=== PATIENT | female | born 1985 | race African-American/Black ===

== ENCOUNTER 2019-10-26 12:29 | Emergency (ER) | payer SELFPAY ==
[~2019-10-26] VITALS: Ht 165.1 cm; Wt 68.1 kg
[2019-10-26] MEDS: METOCLOPRAMIDE HCL 10 MG/2 ML VIAL. IVP ONE (13:45)
[2019-10-26 14:02] LABS: BASO # 0.1 x10^3/uL (0.0-0.2); BASO % 1 % (0-3); EOS # 0.2 x10^3/uL (0.0-0.7); EOS % 2 % (0-3); HEMATOCRIT 36.8 % (36.0-47.0); HEMOGLOBIN 12.8 g/dL (12.0-15.5); LYMPH # 1.9 x10^3/uL (1.0-4.8); LYMPH % 20 % (24-48); MEAN CORPUSCULAR HEMOGLOBIN 33 pg (25-35); MEAN CORPUSCULAR HGB CONC 35 g/dL (31-37); MEAN CORPUSCULAR VOLUME 94 fL (79-100); MONO # 0.5 x10^3/uL (0.0-1.1); MONO % 6 % (0-9); NEUT # 6.8 x10^3/uL (1.8-7.7); NEUT % 72 % (31-73); PLATELET COUNT 403 x10^3/uL (140-400); RED BLOOD COUNT 3.91 x10^6/uL (3.50-5.40); RED CELL DISTRIBUTION WIDTH 14.5 % (11.5-14.5); WHITE BLOOD COUNT 9.5 x10^3/uL (4.0-11.0)
[2019-10-26] MEDS: IV NORMAL SALINE 1000ML BAG 1,000 ML IV SCH (14:09)
[2019-10-26 14:13] LABS: CALCIUM 9.4 mg/dL (8.5-10.1); CREATININE 0.7 mg/dL (0.6-1.0); GFR 95.2; POTASSIUM 3.7 mmol/L (3.5-5.1)
[2019-10-26] MEDS: diphenhydrAMINE 50 MG/ML VIAL IVP ONE (14:18)
[2019-10-26 14:19] LABS: ALBUMIN 3.9 g/dL (3.4-5.0); TOTAL BILIRUBIN 0.4 mg/dL (0.2-1.0)
[2019-10-26 14:20] LABS: BILIRUBIN,URINE NEGATIVE (NEG); CLARITY,URINE CLEAR; COLOR,URINE YELLOW; NITRITE,URINE NEGATIVE (NEG); PH,URINE 5.5 (<5.0-8.0); PROTEIN,URINE 30 mg/dL (NEG-TRACE)
[2019-10-26 14:26] LABS: BARBITURATES NEG (NEG); BENZODIAZEPINES NEG (NEG); CANNABINOIDS POS (NEG); COCAINE NEG (NEG); METHADONE NEG (NEG); OPIATES NEG (NEG); PHENCYCLIDINE NEG (NEG)
[2019-10-26 14:33] LABS: SQUAMOUS EPITHELIAL CELL,UR FEW /LPF
[2019-10-26 14:34] LABS: BACTERIA,URINE 0 /HPF (0-FEW); WBC,URINE 0 /HPF (0-4)
[2019-10-26 14:36] LABS: AMPHETAMINE/METHAMPHETAMINE NEG (NEG)
[2019-10-26] MEDS: PROCHLORPERAZINE 10 MG/2 ML VIAL. IV ONE (15:42)
[2019-10-26] MEDS: fentaNYL PF VIAL 100 MCG/2 ML VIAL IVP ONE (15:43)
[2019-10-26 15:50] VITALS: BP 146/94
[2019-10-26] MEDS ORDERED: PROM25TA10 PO (16:17)
--- NOTE | 2019-10-26 16:18 | PHYS DOC ---
Past Medical History Past Medical History: Anxiety Past Surgical History: Smoking Status: Current Every Day Smoker Additional Information: 3 CIGARETTES A DAY Alcohol Use: Occasionally Adult General Chief Complaint Chief Complaint: ABDOMINAL PAIN HPI HPI Patient is a 34 year old female with history of anxiety who presents with complaint of nausea and vomiting and diarrhea. Patient complaining of 2 episodes of diarrhea after she woke up this morning and then dry heaving without having vomiting and then epigastric pain since this morning as a constant pain with radiation to her back and rated her pain 10/10. Patient stated she was not able to take her anxiety medication. Patient denies history of the same problem, sick contact, urinary symptoms, fever or chills, chest pain or shortness of breath. Review of Systems Review of Systems Constitutional: Denies fever or chills [] Eyes: Denies change in visual acuity, redness, or eye pain [] HENT: Denies nasal congestion or sore throat [] Respiratory: Denies cough or shortness of breath [] Cardiovascular: No additional information not addressed in HPI [] GI: Reports abdominal pain, nausea, diarrhea [] : Denies dysuria or hematuria [] Musculoskeletal: Denies back pain or joint pain [] Integument: Denies rash or skin lesions [] Neurologic: Denies headache, focal weakness or sensory changes [] Endocrine: Denies polyuria or polydipsia [] All other systems were reviewed and found to be within normal limits, except as documented in this note. Current Medications Current Medications Current Medications Medications (Trade) Dose Ordered Sig/Giancarlo Start Time Stop Time Status Last Admin Dose Admin Diphenhydramine HCl (Benadryl) 50 mg 1X ONCE 10/26/19 14:15 10/26/19 14:16 DC 10/26/19 14:18 50 MG Fentanyl Citrate (Fentanyl 2ml Vial) 50 mcg 1X ONCE 10/26/19 15:45 10/26/19 15:46 DC 10/26/19 15:43 50 MCG Lorazepam (Ativan Inj) 1 mg 1X ONCE 10/26/19 14:45 10/26/19 14:46 DC 10/26/19 14:47 1 MG Metoclopramide HCl (Reglan Vial) 10 mg 1X ONCE 10/26/19 13:45 10/26/19 13:46 DC Prochlorperazine Edisylate (Compazine) 10 mg 1X ONCE 10/26/19 15:30 10/26/19 15:31 DC 10/26/19 15:42 10 MG Sodium Chloride 1,000 ml @ 1,000 mls/hr 1X ONCE 10/26/19 16:45 10/26/19 17:44 Allergies Allergies Allergies Coded Allergies Type Severity Reaction Last Updated Verified famotidine Allergy Mild "TONGUE TWISTS" 10/26/19 Yes ketorolac Allergy Mild "TONGUE TWISTS" 10/26/19 Yes metoclopramide Allergy Mild "TONGUE TWISTS" 10/26/19 Yes ondansetron Allergy Mild "TONGUE TWISTS" 10/26/19 Yes Physical Exam Physical Exam Constitutional: Well nourished, moderate distress, non-toxic appearance very anxious, dry heaving during evaluation with making loud nose. [] HENT: Normocephalic, atraumatic, oropharynx moist, no oral exudates, nose normal. [] Eyes: PERRLA, EOMI, conjunctiva normal, no discharge. [] Neck: Normal range of motion, no tenderness, supple, no stridor. [] Cardiovascular:Heart rate regular rhythm, no murmur [] Lungs & Thorax: Bilateral breath sounds clear to auscultation [] Abdomen: Bowel sounds normal, soft, no tenderness, no masses, no pulsatile masses. [] Skin: Warm, dry, no erythema, no rash. [] Back: No tenderness, no CVA tenderness. [] Extremities: No tenderness, no cyanosis, no clubbing, ROM intact, no edema. [] Neurologic: Alert and oriented X 3, normal motor function, normal sensory fun ction, no focal deficits noted. [] Psychologic: Affect anxious, judgement normal, mood normal. [] Current Patient Data Vital Signs Vital Signs Date Time Temp Pulse Resp B/P (MAP) Pulse Ox O2 Delivery O2 Flow Rate FiO2 10/26/19 16:13 19 96 Room Air 10/26/19 15:50 89 146/94 (111) 10/26/19 13:20 98.1 98.1 Lab Values Laboratory Tests Test 10/26/19 13:45 10/26/19 14:07 10/26/19 14:13 White Blood Count 9.5 x10^3/uL (4.0-11.0) Red Blood Count 3.91 x10^6/uL (3.50-5.40) Hemoglobin 12.8 g/dL (12.0-15.5) Hematocrit 36.8 % (36.0-47.0) Mean Corpuscular Volume 94 fL (79-100) Mean Corpuscular Hemoglobin 33 pg (25-35) Mean Corpuscular Hemoglobin Concent 35 g/dL (31-37) Red Cell Distribution Width 14.5 % (11.5-14.5) Platelet Count 403 x10^3/uL (140-400) H Neutrophils (%) (Auto) 72 % (31-73) Lymphocytes (%) (Auto) 20 % (24-48) L Monocytes (%) (Auto) 6 % (0-9) Eosinophils (%) (Auto) 2 % (0-3) Basophils (%) (Auto) 1 % (0-3) Neutrophils # (Auto) 6.8 x10^3/uL (1.8-7.7) Lymphocytes # (Auto) 1.9 x10^3/uL (1.0-4.8) Monocytes # (Auto) 0.5 x10^3/uL (0.0-1.1) Eosinophils # (Auto) 0.2 x10^3/uL (0.0-0.7) Basophils # (Auto) 0.1 x10^3/uL (0.0-0.2) Sodium Level 141 mmol/L (136-145) Potassium Level 3.7 mmol/L (3.5-5.1) Chloride Level 105 mmol/L (98-107) Carbon Dioxide Level 21 mmol/L (21-32) Anion Gap 15 (6-14) H Blood Urea Nitrogen 11 mg/dL (7-20) Creatinine 0.7 mg/dL (0.6-1.0) Estimated GFR (Cockcroft-Gault) 95.2 BUN/Creatinine Ratio 16 (6-20) Glucose Level 113 mg/dL (70-99) H Calcium Level 9.4 mg/dL (8.5-10.1) Total Bilirubin 0.4 mg/dL (0.2-1.0) Aspartate Amino Transferase (AST) 21 U/L (15-37) Alanine Aminotransferase (ALT) 13 U/L (14-59) L Alkaline Phosphatase 67 U/L (46-116) Total Protein 8.0 g/dL (6.4-8.2) Albumin 3.9 g/dL (3.4-5.0) Albumin/Globulin Ratio 1.0 (1.0-1.7) Lipase 49 U/L (73-393) L Urine Collection Type U cath Urine Color Yellow Urine Clarity Clear Urine pH 5.5 (<5.0-8.0) Urine Specific [place] >=1.030 (1.000-1.030) Urine Protein 30 mg/dL (NEG-TRACE) Urine Glucose (UA) Negative mg/dL (NEG) Urine Ketones (Stick) 15 mg/dL (NEG) Urine Blood Negative (NEG) Urine Nitrite Negative (NEG) Urine Bilirubin Negative (NEG) Urine Urobilinogen Dipstick 1.0 mg/dL (0.2 mg/dL) Urine Leukocyte Esterase Negative (NEG) Urine RBC 1-2 /HPF (0-2) Urine WBC 0 /HPF (0-4) Urine Squamous Epithelial Cells Few /LPF Urine Bacteria 0 /HPF (0-FEW) Urine Mucus Marked /LPF Urine Opiates Screen Neg (NEG) Urine Methadone Screen Neg (NEG) Urine Barbiturates Neg (NEG) Urine Phencyclidine Screen Neg (NEG) Urine Amphetamine/Methamphetamine Neg (NEG) Urine Benzodiazepines Screen Neg (NEG) Urine Cocaine Screen Neg (NEG) Urine Cannabinoids Screen Pos (NEG) Urine Ethyl Alcohol Neg (NEG) POC Urine HCG, Qualitative Hcg negative (Negative) Laboratory Tests 10/26/19 13:45 Laboratory Tests 10/26/19 13:45 EKG EKG [] Radiology/Procedures Radiology/Procedures [][facility] [id number] [place] [address] IMAGING REPORT Signed PATIENT: THEODORE LEE ACCOUNT: [id number] : 1985 LOCATION: ER AGE: 34 SEX: F EXAM STATUS: REG ER ORD. PHYSICIAN: ROHIT MEDEIROS MD REASON: Nausea vomiting abdominal pain PROCEDURE: CT ABDOMEN PELVIS WO CONTRAST EXAM: CT Abdomen and Pelvis without IV contrast INDICATION: Nausea, vomiting and abdominal pain. TECHNIQUE: Multi-detector row CT images were acquired from the lung bases through the abdomen and pelvis without the use of IV contrast. Sagittal and coronal images were acquired from the transaxial data. All CT scans performed at this facility utilize dose optimization techniques as appropriate to the exam, including the following: Automated exposure control and adjustment of the mA and/or KV according to patient size (this includes techniques or standardized protocols for targeted exams where dose is indication/reason for exam). ORAL CONTRAST: None COMPARISON: Abdomen and pelvis CT with IV contrast 07/28/2019 FINDINGS: The absence of IV contrast limits evaluation of soft tissue pathology. LOWER CHEST: Bilateral groundglass opacities are present in patchy distribution affecting the left lower lobe to the greatest extent. There is some respiratory motion artifact that degrades detail. These findings are new from the previous exam. LIVER: Unremarkable BILIARY SYSTEM: Gallbladder is surgically absent. Bile ducts are not dilated. PANCREAS: Unremarkable SPLEEN: Unremarkable ADRENALS: Unremarkable KIDNEYS & URETERS: Stable 2 cm superior pole right renal cyst, better demonstrated on the prior examination. BLADDER: Unremarkable REPRODUCTIVE ORGANS: Unremarkable GASTROINTESTINAL: The stomach, small bowel, and colon are unremarkable. The appendix is normal. MESENTERY/PERITONEUM/RETROPERITONEUM: Unremarkable VASCULAR: Unremarkable LYMPH NODES: No adenopathy OSSEOUS & SOFT TISSUES: Fat necrosis in the right gluteal subcutaneous soft tissues. IMPRESSION: Nonspecific bibasilar patchy groundglass opacities, potentially reflecting aspiration pneumonitis but other etiologies such as atypical (viral) pneumonia are not excluded. Otherwise no acute findings on abdomen and pelvis CT without IV contrast.. FOR INTERNAL CODING PURPOSES Critical result: Findings discussed with ROHIT MEDEIROS at 10/26/2019 5:12 PM. RESULT CODE: (C) Electronically signed by: Chris Blount MD (10/26/2019 5:14 PM) [id number] DICTATED and SIGNED BY: CHRIS BLOUNT MD DATE: 10/26/19 1714 Course & Med Decision Making Course & Med Decision Making Pertinent Labs and Imaging studies reviewed. (See chart for details) Evaluation of patient in ER showed 34-year-old male patient who presented for the first time to this emergency room and stated she was visiting this area from [place] complaining of nausea vomiting diarrhea and abdominal pain. Patient was very anxious and had a dry heaving during evaluation. Patient treated with several medications but patient was specifically asking for special medication and had drug-seeking behavior. Patient had unremarkable CBC CMP and UA except for positive marijuana in UDS. Patient refused discharge and asked for more pain medication. CT abdomen pelvis was done with unremarkable report of CT abdomen pelvis but radiologist reported possible viral pneumonitis and chest x- ray. I was planning to call [facility] for determining of evaluation of coronavirus but patient had her ride in here and decided to leave. Dragon Disclaimer Dragon Disclaimer This electronic medical record was generated, in whole or in part, using a voice recognition dictation system. Departure Departure Impression: Primary Impression: Acute gastroenteritis Additional Impressions: Marijuana abuse Anxiety Disposition: HOME, SELF-CARE (At 1615) Condition: IMPROVED Referrals: NO PCP (PCP) Patient Instructions: Anxiety and Panic Attacks, Viral Gastroenteritis Additional Instructions: Drink plenty of liquids Follow-up with your primary care physician in 3-5 days Return to ER if not getting better Do not eat solid food today May take [id number] Imodium as needed for diarrhea Continue your current home medication Thank you for visiting [facility]. We appreciate you trusting us with your care. If any additional problems come up don't hesitate to return to visit us. Please follow up with your primary care provider so they can plan additional care if needed and know about the problem that you had. If symptoms worsen come back to the Emergency Department. Any concerning symptoms that start such as chest pain, shortness of air, weakness or numbness on one side of the body, running high fevers or any other concerning symptoms return to the ER. Scripts Promethazine Hcl (PROMETHAZINE HCL) 25 Mg Tablet 1 TAB PO PRN Q6HRS, #10 TAB Prov: ROHIT MEDEIROS MD 10/26/19 Critical Care Time Critical care time was 60 minutes exclusive of procedures. Problem Qualifiers ROHIT MEDEIROS MD Oct 26, 2019 16:17
[2019-10-26] MEDS: IV NORMAL SALINE 1000ML BAG 1,000 ML IV ONE (16:45)
--- NOTE | 2019-10-26 17:17 | RAD ---
EXAM: CT Abdomen and Pelvis without IV contrast INDICATION: Nausea, vomiting and abdominal pain. TECHNIQUE: Multi-detector row CT images were acquired from the lung bases through the abdomen and pelvis without the use of IV contrast. Sagittal and coronal images were acquired from the transaxial data. All CT scans performed at this facility utilize dose optimization techniques as appropriate to the exam, including the following: Automated exposure control and adjustment of the mA and/or KV according to patient size (this includes techniques or standardized protocols for targeted exams where dose is indication/reason for exam). ORAL CONTRAST: None COMPARISON: Abdomen and pelvis CT with IV contrast 07/28/2019 FINDINGS: The absence of IV contrast limits evaluation of soft tissue pathology. LOWER CHEST: Bilateral groundglass opacities are present in patchy distribution affecting the left lower lobe to the greatest extent. There is some respiratory motion artifact that degrades detail. These findings are new from the previous exam. LIVER: Unremarkable BILIARY SYSTEM: Gallbladder is surgically absent. Bile ducts are not dilated. PANCREAS: Unremarkable SPLEEN: Unremarkable ADRENALS: Unremarkable KIDNEYS & URETERS: Stable 2 cm superior pole right renal cyst, better demonstrated on the prior examination. BLADDER: Unremarkable REPRODUCTIVE ORGANS: Unremarkable GASTROINTESTINAL: The stomach, small bowel, and colon are unremarkable. The appendix is normal. MESENTERY/PERITONEUM/RETROPERITONEUM: Unremarkable VASCULAR: Unremarkable LYMPH NODES: No adenopathy OSSEOUS & SOFT TISSUES: Fat necrosis in the right gluteal subcutaneous soft tissues. IMPRESSION: Nonspecific bibasilar patchy groundglass opacities, potentially reflecting aspiration pneumonitis but other etiologies such as atypical (viral) pneumonia are not excluded. Otherwise no acute findings on abdomen and pelvis CT without IV contrast.. FOR INTERNAL CODING PURPOSES Critical result: Findings discussed with ROHIT MEDEIROS at 10/26/2019 5:12 PM. RESULT CODE: (C) Electronically signed by: Hanane Keating MD (10/26/2019 5:14 PM) [id number]
== END 2019-10-26 17:34 | disposition home or self-care (01) ==
LOC: ER 12:29
DX: K52.9 Noninfective gastroenteritis and colitis, unspecified (principal); R10.13 Epigastric pain; R11.2 Nausea with vomiting, unspecified; F41.9 Anxiety disorder, unspecified; F17.210 Nicotine dependence, cigarettes, uncomplicated; F12.90 Cannabis use, unspecified, uncomplicated; Z98.890 Other specified postprocedural states; Z88.8 Allergy status to other drugs, medicaments and biological substances; Z88.6 Allergy status to analgesic agent
CPT/HCPCS: 36415; 74176; 80053; 80307; 81001; 81025; 83690; 85025; 96361; 96374; 96375; 99284; J0780; J1200; J2060; J3010; J7030